=== PATIENT | female | born 1945 | race Caucasian/White ===

== ENCOUNTER 2022-08-03 06:36 | Emergency (ER) | payer OTHER ==
[2022-08-03] MEDS ORDERED: NAPROXEN250 MG PO (06:58)
[2022-08-03] MEDS ORDERED: METHOCARBAMOL500 M1 PO (06:58)
== END 2022-08-03 07:02 | disposition home or self-care (01) ==
LOC: ED 06:36
DX: S29.012A Strain of muscle and tendon of back wall of thorax, initial encounter (principal); X50.1XXA Overexertion from prolonged static or awkward postures, initial encounter; Y93.89 Activity, other specified; Y92.009 Unspecified place in unspecified non-institutional (private) residence as the place of occurrence of the external cause; Y99.8 Other external cause status